=== PATIENT | male | born 1965 | race Caucasian/White ===

== ENCOUNTER → 2023-04-12 23:59 | Outpatient (BNV) | payer BC, SELFPAY | PROVIDERS: Visit Provider Internal Medicine Cardiovascular Disease | DX: I21.3 ST elevation (STEMI) myocardial infarction of unspecified site (principal) | CPT/HCPCS: 93458; 99152 ==

== ENCOUNTER 2023-11-08 08:47 | Outpatient (AMB) | payer BC, SELFPAY ==
[2023-11-08 08:55] VITALS: BP 129/76; PULSE 72; RESP 18; O2SAT 99; BMI 30.1
--- NOTE | 2023-11-08 08:55 | A.OFFVIS_ITS ---
Intake Vital Signs 3 11/08/23 08:55 Height 5 ft 8 in Weight 198 lb BMI 30.1 BP 129/76 Blood Pressure Location Lt brachial Position Sitting Respiration 18 Pulse 72 Pulse Source Pulse Oximeter Pulse Oximetry (%) 99 Oxygen Delivery Method Room Air Intake Visit Reasons: Thoracic compression fracture - LVM Allergies No Known Allergies Allergy (Verified 11/08/23 08:55) HPI HPI Comments 2 History of Present Illness0 Details Graham is a very pleasant 58-year-old male who presents the office today for evaluation management of his thoracic back pain. Recent MRI results reviewed, patient with acute T9 compression fracture. March 2023 patient was at the dentist, he received 7 injections of lidocaine with epinephrine which ultimately caused full cardiac arrest. CPR was initiated and continued with [place]elo machine by EMS. He sustained fractures of the sternum and 12 ribs. He reports that after 3 months all of that has healed without residual pain or deficits. In July he was found to be in AFib, underwent cardioversion which put him back into normal sinus rhythm. He is on Xarelto secondary to the episode of AFib. Patient states he developed thoracic back pain, evaluated by his primary care doctor an MRI was ordered. They then found the traumatic T9 fracture and referred him here for treatment Since starting Xarelto he is not able to take nonsteroidal anti-inflammatory medications. He has tried Tylenol [id number] but that is not improved his pain. Pain today is rated as a 2/10 midline thoracic vertebrae. Pain is nonradiating. He denies numbness tingling or weakness of upper or lower extremities. Denies red flag symptoms including new loss of bowel, bladder or saddle anesthesia. Pain is constant, worse throughout the day. In terms of muscle damage condition is described as dull. Pain is negatively impacting patient's enjoyment of life and recreational activities. He reports that prior to the injury he was an avid runner and would like to get back to that lifestyle. Denies use of alcohol, illicit substances or tobacco. Denies implantable devices Endorses current use of anticoagulation, on Xarelto. Managed by [facility]. Review of Systems Const All systems reviewed & are unremarkable except as noted in HPI and below Physical Exam Vital Signs: Last Vital Signs Pulse 72 11/08/23 08:55 Resp 18 11/08/23 08:55 BP 129/76 02/08/24 08:55 Pulse Ox 99 11/08/23 08:55 Oxygen Delivery Method Room Air 11/08/23 08:55 BMI result Body Mass Index 30.1 General: awake, alert, oriented. Answers questions appropriately. Fully engaged in examination. Skin: warm, dry, intact HEENT: Normocephalic. Hearing intact. Cardiac: External chest normal in appearance. Respiratory: No cough, audible wheezing or stridor. Abdomen: without gross distension. MS: No obvious swelling or deformities. Able to stand on bilateral tiptoes and bilateral heels.? Able to transition from sit to stand unassisted. Ambulates with bilaterally normal heel strike and toe off SLR with and without dorsiflexion negative bilaterally Negative footdrop, negative clonus Bilateral lower extremity strength 5/5 Tenderness to palpation over midline thoracic vertebrae at T9 Neurological: Oriented to person, place, time and situation. Thought process intact. No gait abnormalities appreciated. Psychiatric: Appropriate mood and affect. Good judgment and insight. Results Reviewed Results Reviewed: 10/20/2023 Assessment & Plan Assessment & Plan (1) Traumatic compression fracture of thoracic vertebra: Comment: T9 Code(s): S22.000A - Wedge compression fracture of unspecified thoracic vertebra, initial encounter for closed fracture Plan Crow is a very pleasant 58 year old male who presented to the office for evaluation and management of his thoracic back pain. Patient suffering from traumatic T9 compression fracture as determined by recent MRI 10/2023. Tenderness directly over T9 vertebrae without neuro deficits. Lengthy discussion with patient regarding treatment options and time sensitive nature of Kyphoplasty. Pamphlet for kyphoplasty provided to patient. Patient is on Xarelto, will require cardiology clearance to stop medication for procedure. Schedule for fluoroscopy guided T9 kyphoplasty with MAC. All questions and concerns were answered, patient agrees to the plan. Follow-up in the office after the procedure, sooner if needed Coding Level of Care Code New Pt Level 4 (41805) Diagnoses Traumatic compression fracture of thoracic vertebra S22.000A
== END 2023-11-08 09:24 | disposition home or self-care (01) ==
PROVIDERS: PCP Physician Assistant; Visit Provider Registered Nurse Emergency
DX: S22.000A Wedge compression fracture of unspecified thoracic vertebra, initial encounter for closed fracture (principal)
CPT/HCPCS: 99204

== ENCOUNTER → 2023-11-08 08:47 | Outpatient (BNVA) | payer BC, SELFPAY | PROVIDERS: PCP Physician Assistant; Visit Provider Registered Nurse Emergency ==